=== PATIENT | female | born 1965 | race Caucasian/White ===

== ENCOUNTER 2016-06-06 19:41 | Emergency (ER) | payer MEDICAID, OTHER ==
[~2016-06-06] VITALS: Ht 170.2 cm; Wt 89.5 kg
[~2016-06-06 19:41] MED LIST: DOXY150T PO; FERR-89; FERR324T12 PO; MO6B PO; PERCT PO; UNKNOWN PAIN MED PO
[2016-06-06] MEDS ORDERED: AMLO-511 PO (20:03)
[2016-06-06] MEDS ORDERED: TRAZ-147 PO (20:03)
[2016-06-06] MEDS ORDERED: [UNRECOGNIZED DRUG - CODE] PO (20:03)
[2016-06-06] MEDS ORDERED: METF500T4 PO (20:03)
[2016-06-06] MEDS ORDERED: PROV2.5 PO (20:03)
[2016-06-06] MEDS ORDERED: KETOROLAC TROMETHAMINE 30 MG/ML VIAL IVP ONE (22:30)
[2016-06-06] MEDS ORDERED: SODIUM CHLORIDE 0.9% 1,000 ML IV ONE (22:30)
[2016-06-06 23:06] VITALS: BP 140/80
[2016-06-06 23:18] LABS: INFLUENZA TYPE B NEGATIVE FOR TYPE B (NEGATIVE)
[2016-06-06] MEDS ORDERED: ACETAMINOPHEN 325 MG TABLET PO ONE (23:45)
== END 2016-06-06 23:59 | disposition home or self-care (01) ==
LOC: EMS 19:44
DX: J32.9 Chronic sinusitis, unspecified (principal)
CPT/HCPCS: 87804; 96361; 96374; 99284; J1885; J7030

== ENCOUNTER 2016-06-19 19:20 | Emergency (ER) | payer OTHER ==
[~2016-06-19] VITALS: Ht 170.2 cm; Wt 86.0 kg
[~2016-06-19 19:20] MED LIST changes: +AMLO-511 PO; -DOXY150T PO; -FERR-89; +FERS325; +METF500T4 PO; +PROV2.5 PO; +TRAZ-147 PO; +[UNRECOGNIZED DRUG - CODE] PO
[2016-06-19 20:02] LABS: GLUCOSE,POINT OF CARE 150 MG/DL (70-110)
[2016-06-19] MEDS ORDERED: CefTRIAXone SODIUM 1 GM/VIAL IM ONE (23:00)
[2016-06-19] MEDS ORDERED: SULFAMETHOX/TRIMETH DS 800-160 MG/TABLET PO ONE (23:00)
[2016-06-19] MEDS ORDERED: LIDOCAINE HCL/PF 1% 2 ML VIAL IM ONE (23:00)
[2016-06-19] MEDS ORDERED: HYDROCODONE/ACETAMINOPHEN 5-325 MG TABLET PO ONE (23:00)
[2016-06-19 23:08] VITALS: BP 128/81
== END 2016-06-19 23:15 | disposition home or self-care (01) ==
LOC: EMS 19:21
DX: L03.113 Cellulitis of right upper limb (principal)
CPT/HCPCS: 82962; 96372; 99284; J0696; J3490

== ENCOUNTER 2023-11-05 12:04 | Emergency (ER) | payer OTHER ==
[~2023-11-05] VITALS: Ht 170.2 cm; Wt 86.4 kg
[~2023-11-05 12:04] MED LIST changes: +AMLO-257 PO; -AMLO-511 PO; -FERS325; +IBUP-2088 PO; +METF-1211 PO; -METF500T4 PO; -MO6B PO; -PERCT PO; -TRAZ-147 PO; +TRAZ-257 PO; -UNKNOWN PAIN MED PO
[2023-11-05 12:22] VITALS: TEMP 98.3
[2023-11-05] MEDS: ACETAMINOPHEN/CODEINE 300-30 MG TABLET PO ONE (12:49)
[2023-11-05] MEDS: BACLOFEN 10 MG TABLET PO ONE (12:49)
[2023-11-05] MEDS: IBUPROFEN 600 MG TABLET PO ONE (12:50)
[2023-11-05] MEDS ORDERED: IBUP-1554 PO (13:54)
[2023-11-05] MEDS ORDERED: ACET-2080 PO (13:54)
[2023-11-05] MEDS ORDERED: BACL10TA PO (13:54)
[2023-11-05] MEDS ORDERED: FLUT16SP NASAL (13:56)
[2023-11-05 14:00] VITALS: BP 138/85; PULSE 65; RESP 16
== END 2023-11-05 14:26 | disposition home or self-care (01) ==
LOC: EMS 12:04
DX: S13.4XXA Sprain of ligaments of cervical spine, initial encounter (principal); J32.9 Chronic sinusitis, unspecified; R51.9 Headache, unspecified; E11.9 Type 2 diabetes mellitus without complications; I10 Essential (primary) hypertension; V89.2XXA Person injured in unspecified motor-vehicle accident, traffic, initial encounter; Y93.89 Activity, other specified; Y92.89 Other specified places as the place of occurrence of the external cause; Y99.8 Other external cause status
CPT/HCPCS: 70450; 82962; 99284